=== PATIENT | male | born 1975 | race Caucasian/White ===

== ENCOUNTER 2023-11-19 12:57 | Outpatient (RCR) | payer BC, SELFPAY | END 2023-11-19 23:59 | disposition home or self-care (01) | LOC: RPT 12:57 | PROVIDERS: ATTENDING PHYSICIAN Physician Assistant Medical; FAMILY PHYSICIAN Family Medicine | DX: M54.2 Cervicalgia (principal); M43.22 Fusion of spine, cervical region; Z73.6 Limitation of activities due to disability | CPT/HCPCS: 97010; 97110; 97112; 97140; 97162 ==

== ENCOUNTER 2023-11-26 13:27 | Outpatient (RCR) | payer BC, SELFPAY | END 2023-11-27 07:40 | disposition home or self-care (01) | LOC: RPT 13:27 | PROVIDERS: ATTENDING PHYSICIAN Physician Assistant Medical; FAMILY PHYSICIAN Family Medicine | DX: Z47.89 Encounter for other orthopedic aftercare (principal); M54.2 Cervicalgia; Z73.6 Limitation of activities due to disability; R51.9 Headache, unspecified; M43.22 Fusion of spine, cervical region | CPT/HCPCS: 97110; 97140 ==

== ENCOUNTER → 2024-01-17 06:44 | Outpatient (REF) | payer BC, SELFPAY ==
[2024-01-17 07:23] LABS: % Basophils 0.8 % (0-2); % Eosinophils 3.5 % (0-6); % Immature Granulocytes 0.8 % (0-0.5); % Lymphocytes 27.5 % (20.5-51.1); % Monocytes 14.1 % (1.7-9.3); % Neutrophils 53.3 % (42.2-75.2); Absolute Eosinophils 0.1 10^3/uL (0-0.7); Absolute Lymphocytes 1.1 10^3/uL (1.2-3.4); Absolute Monocytes 0.6 10^3/uL (0.1-0.6); Absolute Neutrophils 2.1 10^3/uL (1.4-6.5); Hemoglobin 13.8 g/dL (13.0-18.0); Mean Corp Hgb Conc. 34.5 g/dL (33.0-37.0); Mean Corpuscular Hgb 29.1 pg (27.0-31.0); Mean Corpuscular Volume 84.4 fL (80.0-94.0); Mean Platelet Volume 9.9 fL (7.4-10.4); Nucleated Red Blood Cells % 0 % (-); Platelet Count 165 10^3/uL (130-400); Red Blood Cell Count 4.74 10^6/uL (4.70-6.10); Red Cell Dist. Width 12.9 % (11.5-14.5)
[2024-01-17 07:46] LABS: ALT (SGPT) 81 U/L (0-50); AST (SGOT) 46 U/L (17-59); Albumin 4.2 g/dl (3.5-5.0); Alkaline Phosphatase 90 U/L (38-126); Blood Urea Nitrogen 13 mg/dl (9-20); Carbon Dioxide 25 mmol/L (22-30); Chloride 102 mmol/L (98-107); Glucose 129 mg/dl (70-99); HDL Cholesterol 30 mg/dl; Potassium 4.5 mmol/L (3.5-5.1); Sodium 138 mmol/L (135-145); Total Bilirubin 1.1 mg/dl (0.2-1.3); Total Cholesterol 180 mg/dl (50-199); Total Protein 7.1 g/dl (6.3-8.2); eGFR > 60.00
[2024-01-17 07:55] LABS: Triglyceride 461 mg/dl (10-149)
[2024-01-17 08:14] LABS: PSA, Total - Screen 0.44 ng/ml (0.0-4.0)
[2024-01-17 08:34] LABS: LDL Cholesterol, Direct 89 mg/dl
== END ==
LOC: REG 06:44
PROVIDERS: ATTENDING PHYSICIAN Family Medicine
DX: R35.1 Nocturia (principal); E78.2 Mixed hyperlipidemia
CPT/HCPCS: 36415; 80053; 80061; 83721; 85025; G0103

== ENCOUNTER → 2024-01-24 10:00 | Outpatient (REF) | payer BC, SELFPAY ==
[2024-01-24 13:58] LABS: Glycohemoglobin (HgbA1c) 5.9 % (4.0-5.6)
== END ==
LOC: REG 10:00
PROVIDERS: ATTENDING PHYSICIAN Family Medicine
DX: R73.9 Hyperglycemia, unspecified (principal)
CPT/HCPCS: 36415; 83036

== ENCOUNTER → 2025-10-05 07:53 | Outpatient (REF) | payer BC, SELFPAY ==
[2025-10-05 09:20] LABS: Hematocrit 45.2 % (39.0-52.0); Hemoglobin 15.4 g/dL (13.0-18.0); Mean Corp Hgb Conc. 34.1 g/dL (33.0-37.0); Mean Corpuscular Volume 86.3 fL (80.0-94.0); Nucleated Red Blood Cells % 0 % (-); Platelet Count 170 10^3/uL (130-400); Red Cell Dist. Width 12.7 % (11.5-14.5)
[2025-10-05 09:35] LABS: ALT (SGPT) 58 U/L (0-50); AST (SGOT) 36 U/L (17-59); Albumin 5.2 g/dl (3.5-5.0); Alkaline Phosphatase 98 U/L (38-126); Blood Urea Nitrogen 12 mg/dl (9-20); Calcium 9.6 mg/dl (8.4-10.2); Carbon Dioxide 26 mmol/L (22-30); Chloride 104 mmol/L (98-107); Glucose 118 mg/dl (70-99); HDL Cholesterol 37 mg/dl; Potassium 4.2 mmol/L (3.5-5.1); Sodium 139 mmol/L (135-145); Total Protein 8.1 g/dl (6.3-8.2); eGFR > 60.00
[2025-10-05 10:03] LABS: LDL Cholesterol, Direct 94 mg/dl
[2025-10-05 10:05] LABS: PSA, Total - Screen 0.49 ng/ml (0.0-4.0)
[2025-10-05 10:06] LABS: Glycohemoglobin (HgbA1c) 5.6 % (4.0-5.9)
== END ==
LOC: REG 07:53
PROVIDERS: ATTENDING PHYSICIAN Family Medicine
DX: Z12.5 Encounter for screening for malignant neoplasm of prostate (principal); E78.2 Mixed hyperlipidemia; I10 Essential (primary) hypertension; R73.9 Hyperglycemia, unspecified
CPT/HCPCS: 36415; 80053; 80061; 83036; 83721; 85025; G0103